=== PATIENT | female | born 1985 | race Asian ===

== ENCOUNTER 2018-03-09 14:44 | Emergency (ER) | payer SELFPAY ==
[~2018-03-09] VITALS: Ht 162.6 cm; Wt 56.7 kg
[2018-03-09 14:58] VITALS: Ht 162.6 cm; Wt 56.7 kg
[2018-03-09 15:58] LABS: UA SPECIFIC GRAVITY 1.015 (1.005-1.035); microscopic required? YES; urine erythrocyte 3+ (NEGATIVE)
[2018-03-09 16:26] LABS: BASOPHIL % 0.4 % (0-2); PLATELET COUNT 246 x10^3mcL (130-400); RED CELL DISTRIBUTION WIDTH 13.9 % (11.5-14.5)
[2018-03-09 17:56] VITALS: BP 112/69
== END 2018-03-09 17:56 | disposition home or self-care (01) ==
LOC: ED 14:44
PROVIDERS: Specialist
DX: O20.0 Threatened abortion (principal)
CPT/HCPCS: 36415